=== PATIENT | female | born 1940 | race Caucasian/White ===

== ENCOUNTER 2017-10-26 05:53 | Day surgery (SDC) | payer MEDICARE, BC, OTHER ==
[2017-10-26] MEDS: PROPARACAINE 0.5% OPHTH SOL 15ML OS (06:35)
[2017-10-26] MEDS: PHENYLEPHRINE 2.5% OPHTH SOL 2ML OS (06:35)
[2017-10-26] MEDS: OFLOXACIN 0.3 % (OCUFLOX) OPTH SOL 5ML OS (06:35)
[2017-10-26] MEDS: TROPICAMIDE 1% OPHTH SOLN 2ML OS (06:35)
[2017-10-26] MEDS: TRIAMCINOLONE PRES FR 40 MG/ML 1ML(TRIESENCE)(OR EYE ONLY)(J3300 PER 1MG) As Ordered (06:50)
[2017-10-26] MEDS ORDERED: BALANCED SALT IRRIGATION SOLUTION 500ML BAG (FOR OR EYE MACHINE) As Ordered (06:52)
[2017-10-26] MEDS ORDERED: CEFUROXIME 1MG/0.1ML INTRACAMERAL INJ As Ordered (06:52)
[2017-10-26] MEDS ORDERED: DUOVISC (0.50ML VISCOAT/0.55ML PROVISC) OPHTH KIT As Ordered (06:53)
[2017-10-26] MEDS ORDERED: LIDOCAINE 0.75%/EPINEPHRINE 0.025% IN BSS 1ML SYR INTRACAMERAL (OR ONLY) As Ordered (06:53)
[2017-10-26] MEDS ORDERED: MIDAZOLAM INJ 2 MG/2 ML VIAL (J2250) As Ordered (06:59)
[2017-10-26] MEDS ORDERED: fentaNYL 100 MCG/2 ML INJECTION (J3010) As Ordered (06:59)
[2017-10-26] MEDS ORDERED: LIDOCAINE 2% INJ 100 MG/5 ML SDV (FOR ANES.) As Ordered (07:37)
[2017-10-26] MEDS ORDERED: PROPOFOL 200 MG/20 ML VIAL As Ordered (07:38)
[2017-10-26] MEDS: POVIDONE-IODINE 5% OPHTH PREP SOL 30ML As Ordered (07:39)
== END 2017-10-26 08:40 | disposition home or self-care (01) ==
LOC: M SDC 05:53
DX: H25.12 Age-related nuclear cataract, left eye (principal); I10 Essential (primary) hypertension; E78.5 Hyperlipidemia, unspecified; K21.9 Gastro-esophageal reflux disease without esophagitis; Z79.899 Other long term (current) drug therapy; Z88.5 Allergy status to narcotic agent
CPT/HCPCS: 66984

== ENCOUNTER 2017-12-07 05:45 | Day surgery (SDC) | payer MEDICARE, BC, OTHER ==
[2017-12-07] MEDS: OFLOXACIN 0.3 % (OCUFLOX) OPTH SOL 5ML OD (06:31)
[2017-12-07] MEDS: PHENYLEPHRINE 2.5% OPHTH SOL 2ML OD (06:31)
[2017-12-07] MEDS: TROPICAMIDE 1% OPHTH SOLN 2ML OD (06:31)
[2017-12-07] MEDS: PROPARACAINE 0.5% OPHTH SOL 15ML OD (06:31)
[2017-12-07] MEDS ORDERED: fentaNYL 100 MCG/2 ML INJECTION (J3010) As Ordered (07:10)
[2017-12-07] MEDS ORDERED: MIDAZOLAM INJ 2 MG/2 ML VIAL (J2250) As Ordered (07:10)
[2017-12-07] MEDS: POVIDONE-IODINE 5% OPHTH PREP SOL 30ML As Ordered (07:45)
[2017-12-07] MEDS: BALANCED SALT IRRIGATION SOLUTION 500ML BAG (FOR OR EYE MACHINE) As Ordered (07:45)
[2017-12-07] MEDS: CEFUROXIME 1MG/0.1ML INTRACAMERAL INJ As Ordered (07:46)
[2017-12-07] MEDS: LIDOCAINE 0.75%/EPINEPHRINE 0.025% IN BSS 1ML SYR INTRACAMERAL (OR ONLY) As Ordered (07:46)
[2017-12-07] MEDS: DUOVISC (0.50ML VISCOAT/0.55ML PROVISC) OPHTH KIT As Ordered (07:46)
== END 2017-12-07 08:30 | disposition home or self-care (01) ==
LOC: M SDC 05:45
DX: H25.11 Age-related nuclear cataract, right eye (principal); H52.201 Unspecified astigmatism, right eye; I10 Essential (primary) hypertension; E03.9 Hypothyroidism, unspecified; E78.5 Hyperlipidemia, unspecified; K21.9 Gastro-esophageal reflux disease without esophagitis; M15.0 Primary generalized (osteo)arthritis; M85.80 Other specified disorders of bone density and structure, unspecified site; R35.0 Frequency of micturition; Z88.5 Allergy status to narcotic agent; Z90.710 Acquired absence of both cervix and uterus; Z96.653 Presence of artificial knee joint, bilateral
CPT/HCPCS: 66984

== ENCOUNTER → 2020-04-23 | Outpatient (CLI) | payer MEDICARE, BC, OTHER ==
[~2020-04-23] MED LIST: ACE65ERTAB PO; ACET-683 PO; CALC-212 PO; CELE1CAP9 PO; CO Q200C10 PO; CRAN500C2 PO; LOSA100T8 PO; MAGN250T7 PO; MAGN500C PO; NEXI20CA PO; SIMV10TA21 PO; VERA300C6 PO; VITA-110 PO
[2020-04-23 12:44] LABS: PLATELET COUNT, AUTOMATED 382 10^3/uL (150-450)
[2020-04-23 13:00] LABS: INR 1.02; PROTHROMBIN TIME 13.6 SECONDS (12.5-14.3)
[2020-04-23 13:01] LABS: PARTIAL THROMBOPLASTIN TIME 28.7 SECONDS (24.2-38.5)
[2020-04-23 13:24] LABS: COLLAGEN EPINEPHRINE 99 SECONDS (74-162)
== END ==
LOC: M LAB 11:44
PROVIDERS: ATTEND Physical Medicine & Rehabilitation
DX: M48.061 Spinal stenosis, lumbar region without neurogenic claudication (principal); Z79.899 Other long term (current) drug therapy

== ENCOUNTER → 2023-12-27 | Outpatient (REF) | payer MEDICARE, BC, OTHER ==
[~2023-12-27] MED LIST changes: +CELE0.09 PO; -CELE1CAP9 PO
== END ==
LOC: M LAB REF 15:29
PROVIDERS: ATTEND Surgery
DX: L57.0 Actinic keratosis (principal)

== ENCOUNTER → 2024-07-10 | Outpatient (REF) | payer MEDICARE, BC, OTHER ==
[~2024-07-10] MED LIST changes: -VERA300C6 PO; +VERA300C7 PO
== END ==
LOC: M LAB REF 15:32
PROVIDERS: ATTEND Surgery
DX: C44.722 Squamous cell carcinoma of skin of right lower limb, including hip (principal)